=== PATIENT | male | born 1970 | race Caucasian/White ===

== ENCOUNTER 2019-05-22 10:30 | Emergency (ER) | payer BC, OTHER ==
--- NOTE | 2019-05-22 10:45 | ED ---
Complex/Multi-Sys Presentation - HPI Summary HPI Summary: 49 year old M arriving via ambulance complains of weakness, lightheadedness tingliness in bilateral upper extremities which started on his way to an appointment with his primary care provider today. Recent travel to [place], [place] to 05/19/2019. Patient woke up today feeling fatigued so he called his primary care provider and made an appointment. He developed weakness, lightheadedness tingliness while driving to his primary care provider. Patient decided to stop at the store for orange juice. He still had symptoms so he called EMS. Finger stick BG 84 per EMS. Patient states he started feeling better on the way to the ED. He did not have breakfast. No cough or fever. Symptoms aggravated by nothing. Symptoms alleviated by nothing. No PMHx. Allergies reviewed. FHx cardiac disease. - History Of Current Complaint Chief Complaint: EDWeakness Time Seen by Provider: 05/22/19 10:33 Hx Obtained From: Patient Onset/Duration: Lasting Hours, Still Present Timing: Constant Severity Currently: None Aggravating Factor(s): Nothing Alleviating Factor(s): Nothing Associated Signs And Symptoms: Positive: Other - weakness, dizziness, fatigue, tingliness in BUE. Negative: Cough, Fever - Allergies/Home Medications Allergies/Adverse Reactions: Allergies Allergy/AdvReac Type Severity Reaction Status Date / Time MS Penicillins [Penicillins] Allergy Unknown Unknown Verified 02/07/13 14:14 Reaction Details PMH/Surg Hx/FS Hx/Imm Hx Endocrine/Hematology History: Denies: Hx Diabetes Cardiovascular History: Denies: Hx Hypertension Respiratory History: Denies: Hx Asthma - Surgical History Surgery Procedure, Year, and Place: hernia repairs Infectious Disease History: No Infectious Disease History: Denies: Traveled Outside the [place] in Last 30 Days - Family History Known Family History: Positive: Cardiac Disease - Social History Alcohol Use: Weekly Substance Use Type: Reports: None Hx Tobacco Use: Yes Smoking Status (MU): Former Smoker Review of Systems Positive: Fatigue. Negative: Fever Negative: Cough Neurological/Mental Status: Other - dizziness, tingliness in BUE Positive: Weakness All Other Systems Reviewed And Are Negative: Yes Physical Exam - Summary Physical Exam Summary: Constitutional: Well-developed, Well-nourished, Alert. (-) Distressed Skin: Warm, Dry HENT: Normocephalic; Atraumatic Eyes: Conjunctiva normal Neck: Musculoskeletal ROM normal neck. (-) JVD, (-) Stridor, (-) Nuchal rigidity Cardio: Rhythm regular, rate normal, Heart sounds normal; Intact distal pulses; Radial pulses are 2+ and symmetric. (-) Murmur Pulmonary/Chest wall: Effort normal. (-) Respiratory distress, (-) Wheezes, (-) Rales Abd: Soft, (-) tenderness, (-) Distension, (-) Guarding, (-) Rebound Musculoskeletal: (-) Edema Lymph: (-) Cervical adenopathy Neuro: Alert, Oriented x3 Psych: Mood and affect Normal Triage Information Reviewed: Yes Vital Signs On Initial Exam: Initial Vitals Temp Pulse Resp BP Pulse Ox 97.2 F 73 18 135/96 98 05/22/19 10:31 05/22/19 10:31 05/22/19 10:31 05/22/19 10:31 05/22/19 10:31 Vital Signs Reviewed: Yes Procedures - Sedation Patient Received Moderate/Deep Sedation with Procedure: No Diagnostics - Vital Signs Vital Signs Temp Pulse Resp BP Pulse Ox 05/22/19 10:31 97.2 F 73 18 135/96 98 - Laboratory Result Diagrams: 05/22/19 11:04 05/22/19 11:04 Lab Statement: Any lab studies that have been ordered have been reviewed, and results considered in the medical decision making process. - EKG 1043 Cardiac Rate: NL - 67 BPM EKG Rhythm: Sinus Rhythm EKG Comparison: No Significant Change - 09/26/2011 Summary of EKG Findings: An EKG at 1043 reveals normal sinus rhythm 67, T wave inversions in leads 3, V1. No STEMI. No significant change when compared to previous EKG done on 09/26/2011. ED physician has reviewed and interpreted this EKG. 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 - Well appearing, VSS. EKG unchanged. Electrolytes WNL and Hb stable. Suspect symptoms 2/2 poor PO intake this am and possible hypoglycemia. - no infectious symptoms. - Diagnoses Provider Diagnoses: Light headedness Discharge ED - Sign-Out/Discharge Documenting (check all that apply): Patient Departure - Discharge Plan Condition: Stable Disposition: HOME Patient Education Materials: Lightheadedness (ED) Referrals: Marquis CALDERÓN,Mohsen Jimenez [Primary Care Provider] - Additional Instructions: You were seen in the emergency department for lightheadedness. Your EKG and labs do not show any cause was. Please drink lots of fluids to ensure you are hydrated. Please follow up with your primary care doctor in next 2-3 days and return to emergency department for passing out, chest pain, worsening or concerning symptoms. It was a pleasure taking care of you today. - Billing Disposition and Condition Condition: STABLE Disposition: Home - Attestation Statements Document Initiated by Gaston: Yes Documenting Scribe: Sherrie Riley Provider For Whom Gaston is Documenting (Include Credential): Osiris De La Fuente MD Scribe Attestation: Sherrie Monge, scribed for Osiris De La Fuente MD on 05/22/19 at 1145. Scribe Documentation Reviewed: Yes Provider Attestation: The documentation as recorded by the edmaribSherrie zapata accurately reflects the service I personally performed and the decisions made by , Osiris De La Fuente MD Status of Scribbenny Document: Viewed
[2019-05-22 11:17] LABS: ABS Monocytes 0.5 10^3/ul (0-0.8); ABS Neutrophils 6.2 10^3/ul (1.5-7.7); Eosinophil % 0.3 %; Hematocrit 43 % (42-52); Hemoglobin 14.9 g/dL (14.0-18.0); Mean Corpuscular HGB Conc 35 g/dL (31-36); Mean Corpuscular Hemoglobin 30 pg (27-31); Mean Corpuscular Volume 86 fL (80-94); Mean Platelet Volume 6.8 fL (7.4-10.4); Platelet Count 256 10^3/uL (150-450); Red Blood Count 5.03 10^6 /uL (4.18-5.48); Red Cell Distribution Width 13 % (10-15); White Blood Count 7.8 10^3/uL (3.5-10.8)
[2019-05-22 11:28] LABS: Albumin 4.7 g/dL (3.2-5.2); Potassium 4.2 mmol/L (3.5-5.0); Total Bilirubin 0.6 mg/dL (0.2-1.0)
[2019-05-22 11:34] LABS: Albumin/Globulin Ratio 1.9 (1-3); BUN/Creatinine Ratio 19.1 (8-20); EGFR African American 109.5 (>60); EGFR Non-African American 90.5 (>60); Globulin 2.5 g/dL (2-4); Total Protein 7.2 g/dL (6.4-8.9)
[2019-05-22 11:57] VITALS: BP 115/88
== END 2019-05-22 11:58 | disposition home or self-care (01) ==
LOC: ED 10:30
DX: R42 Dizziness and giddiness (principal); R53.1 Weakness; R53.83 Other fatigue; R20.2 Paresthesia of skin; Z88.0 Allergy status to penicillin; Z87.891 Personal history of nicotine dependence
CPT/HCPCS: 36415; 80053; 85025; 93005; 99282